=== PATIENT | male | born 1990 | race Caucasian/White ===

== ENCOUNTER 2020-09-28 15:58 | Emergency (ER) | payer OTHER ==
[~2020-09-28] VITALS: Ht 180.3 cm; Wt 95.3 kg
[2020-09-28 16:00] VITALS: BP 115/80
[2020-09-28] MEDS ORDERED: KETOROLAC 30 MG/ML VIAL IM ONE (16:50)
[2020-09-28] MEDS ORDERED: CYCLOBENZAPRINE 10 MG TAB PO ONE (16:50)
--- NOTE | 2020-09-28 18:09 | NUR ---
PT STATES THAT PAIN IS NOW /10.
[2020-09-28 18:22] VITALS: BP 121/71
== END 2020-09-28 18:22 | disposition home or self-care (01) ==
LOC: MED 15:58
DX: M54.42 Lumbago with sciatica, left side (principal)
CPT/HCPCS: 72100; 96372; 99283; J1885